=== PATIENT | male | born 1955 | race Caucasian/White ===

== ENCOUNTER 2016-09-14 08:50 | Day surgery (SDC) | payer BC ==
[~2016-09-14 08:50] MED LIST: FENTANYL 100MCG/2ML SOL ONE; MIDAZOLAM 2 MG/2 ML SOL ONE; PROPOFOL 500 MG/50 ML EMU IV ONE
[2016-09-14] MEDS ORDERED: LIDOCAINE HCL 2% MPF SOL ONE (10:22)
[2016-09-14] MEDS: LIDOCAINE HCL 2% MPF SOL ONE ×2 (11:10→11:23)
[2016-09-14] MEDS: BUPIVACAINE HCL 0.5% MPF 10 ML SOL ONE ×3 (11:10→11:32)
[2016-09-14] MEDS ORDERED: PROPOFOL 10 MG/ML EMU IV ONE (11:41)
[2016-09-14 13:33] VITALS: BP 175/94; PULSE 67; RESP 20; TEMP 96.4; O2SAT 94
== END 2016-09-14 14:00 | disposition home or self-care (01) ==
LOC: SURG 08:50
PROVIDERS: ATTEND Orthopaedic Surgery
DX: G56.03 Carpal tunnel syndrome, bilateral upper limbs (principal); R22.32 Localized swelling, mass and lump, left upper limb
CPT/HCPCS: 25071; 29848; 99001; J2250; J2704 ×2; J3010; A6402

== ENCOUNTER 2016-09-28 11:28 | Outpatient (CLI) | payer BC ==
[2016-09-14 13:33] VITALS: O2SAT 94
[2016-09-28 11:48] LABS: BASOPHILS % (AUTO) 1 % (0-3); EOSINOPHILS % (AUTO) 3 % (0-9); HEMATOCRIT 46 % (39-53); MEAN CORPUSCULAR HGB CONC 34.2 gm/dl (32.0-36.0); MEAN CORPUSCULAR VOLUME 90 fL (80-100); MONOCYTES % (AUTO) 6.8 % (0-12); NEUTROPHILS % (AUTO) 56.5 % (37-80)
== END 2016-09-28 11:29 | disposition home or self-care (01) ==
LOC: CONVCARE 11:28
PROVIDERS: ATTEND Orthopaedic Surgery
DX: M25.532 Pain in left wrist (principal); M25.531 Pain in right wrist
CPT/HCPCS: 36415; 84550; 85025; 85651

== ENCOUNTER 2017-09-05 14:06 | Emergency (ER) | payer BC ==
[2017-09-05 14:25] VITALS: TEMP 97.5
[2017-09-05] MEDS ORDERED: NITROGLYCERIN 0.4 MG TAB SL PRN (14:29)
[2017-09-05] MEDS ORDERED: SODIUM CHLORIDE 0.9% FLUSH 10 ML SOL IV PRN (14:29)
[2017-09-05] MEDS ORDERED: ASPIRIN 81 MG CHEWABLE CTB PO STA (14:29)
[2017-09-05 14:36] LABS: BASOPHILS % (AUTO) 1 % (0-3); EOSINOPHILS % (AUTO) 1 % (0-9); HEMATOCRIT 44 % (39-53); MEAN CORPUSCULAR HGB CONC 32.9 gm/dl (32.0-36.0); MEAN CORPUSCULAR VOLUME 94 fL (80-100); MONOCYTES % (AUTO) 8.8 % (0-12); NEUTROPHILS % (AUTO) 60.8 % (37-80)
[2017-09-05 14:49] LABS: BLOOD UREA NITROGEN 11 mg/dl (7-18); CALCIUM 8.5 mg/dl (8.5-10.1); CREATININE 0.87 mg/dl (0.80-1.30); GLOM FILT RATE 89 mL/min (>60); GLUCOSE 92 mg/dl (74-106); POTASSIUM 3.9 mMol/L (3.5-5.1); SODIUM 135 mMol/L (136-145)
[2017-09-05] MEDS ORDERED: ASPIRIN 81 MG CHEWABLE CTB ONE (14:55)
[2017-09-05 15:33] VITALS: BP 141/101; PULSE 94; RESP 20; O2SAT 97
== END 2017-09-05 15:20 | disposition home or self-care (01) ==
LOC: ED 14:06
DX: R07.89 Other chest pain (principal)
CPT/HCPCS: 71045; 80048; 82550; 84484; 85025; 85610; 85730; 93005; 99284

== ENCOUNTER 2017-12-12 17:04 | Inpatient (IN) | payer BC ==
[2017-12-12] MEDS ORDERED: SODIUM CHLORIDE 0.9% 250 ML 250 ML IV ONE (17:11)
[2017-12-12 19:13] LABS: ABO B; ANTIBODY SCREEN Negative; RH TYPE Negative; UNIT TYPE O NEGATIVE
[2017-12-12 19:14] LABS: UNIT TYPE O NEGATIVE
[2017-12-12] MEDS: SODIUM CHLORIDE 0.9% FLUSH 10 ML SOL IV SCH ×4 (19:50→22:08)
[2017-12-12] MEDS ORDERED: CEFOXITIN 1 GM PDS 1 GM in SODIUM CHLORIDE 0.9% 100 ML 100 ML IV SCH (21:00)
[2017-12-12] MEDS ORDERED: AMLODIPINE 5 MG TAB PO SCH (21:00)
[2017-12-12] MEDS ORDERED: CLOPIDOGREL 75 MG TAB PO SCH (21:00)
[2017-12-12] MEDS ORDERED: ATORVASTATIN 10 MG TAB PO SCH (21:00)
[2017-12-12] MEDS ORDERED: LEVOFLOXACIN 25 MG/ML 500 MG in SODIUM CHLORIDE 0.9% 100 ML 100 ML IV SCH (21:00)
[2017-12-12] MEDS ORDERED: LEVOFLOXACIN 25 MG/ML SOL IV ONE (21:15)
[2017-12-12] MEDS ORDERED: SODIUM CHLORIDE 0.9% 100 ML 100 ML IV ONE (21:15)
[2017-12-12 22:00] VITALS: RESP 24; O2SAT 98
[2017-12-12] MEDS ORDERED: METRONIDAZOLE 500 MG (PREMIX) 500 MG/100 ML SOL IV SCH (22:00)
[2017-12-12 22:06] VITALS: BP 116/69; PULSE 88; TEMP 99
== END 2017-12-12 21:15 | disposition short-term general hospital (02) | DRG 663 ==
LOC: ACUTE CARE 17:22
PROVIDERS: ADMIT Family Medicine; ATTEND Family Medicine
PROC: 30233N1 Transfusion of Nonautologous Red Blood Cells into Peripheral Vein, Percutaneous Approach (ICD-10-PCS; principal; 2017-12-12)
DX: D64.9 Anemia, unspecified (principal); I10 Essential (primary) hypertension; R91.1 Solitary pulmonary nodule; R68.81 Early satiety
CPT/HCPCS: 71260; 74177; 86850; 86900; 86901; 86920; 99070; J1956; P9016; Q9967; A9270-GY; J3490

== ENCOUNTER 2017-12-29 09:32 | Emergency (ER) | payer BC ==
[2017-12-29 09:38] VITALS: RESP 20; TEMP 98
[2017-12-29] MEDS ORDERED: SODIUM CHLORIDE 0.9% 1000ML 1,000 ML IV ONE (09:50)
[2017-12-29 10:07] LABS: HEMATOCRIT 28 % (39-53); HEMOGLOBIN 8.4 gm/dl (13.5-17.7); MEAN CORPUSCULAR HEMOGLOBIN 27.4 pg (27.0-32.0); MEAN CORPUSCULAR HGB CONC 30.6 gm/dl (32.0-36.0); MEAN CORPUSCULAR VOLUME 89 fL (80-100)
[2017-12-29 10:10] LABS: INR 1.06 (0.86-1.12)
[2017-12-29 10:17] LABS: ALBUMIN 2.7 gm/dl (3.4-5.0); BILIRUBIN,TOTAL 0.3 mg/dl (0.2-1.0); CALCIUM 8.3 mg/dl (8.5-10.1); CARBON DIOXIDE 27.3 mEq/L (21-32); CREATININE 0.75 mg/dl (0.80-1.30); POTASSIUM 3.9 mMol/L (3.5-5.1); TOTAL PROTEIN 6.7 gm/dl (6.4-8.2)
[2017-12-29 10:21] LABS: BAND NEUTROPHILS % (MANUAL) 2 %; BASOPHILS % (MANUAL) 0 % (0-3); EOSINOPHILS % (MANUAL) 1 % (0-9); MONOCYTES % (MANUAL) 4 % (0-12); NEUTROPHILS % (MANUAL) 87 % (37-80)
[2017-12-29 10:22] LABS: ACANTHOCYTES PRESENT; ANISOCYTOSIS MOD AMT; BURR CELLS PRESENT; HYPOCHROMASIA PRESENT; PLATELET MORPHOLOGY COMMENT INCREASED; POIKILOCYTOSIS MOD AMT
[2017-12-29 10:23] LABS: LYMPHOCYTES % (MANUAL) 6 % (10-50)
[2017-12-29 12:24] VITALS: BP 124/69; PULSE 82; O2SAT 100
== END 2017-12-29 11:55 | disposition home or self-care (01) ==
LOC: ED 09:32
DX: I95.1 Orthostatic hypotension (principal)
CPT/HCPCS: 36415; 80053; 85007; 85027; 85610; 96365; 99284

== ENCOUNTER 2018-02-10 18:41 | Emergency (ER) | payer BC ==
[2018-02-10 19:27] LABS: HEMATOCRIT 24 % (39-53); HEMOGLOBIN 7.5 gm/dl (13.5-17.7); MEAN CORPUSCULAR HEMOGLOBIN 24.7 pg (27.0-32.0); MEAN CORPUSCULAR HGB CONC 30.7 gm/dl (32.0-36.0)
[2018-02-10 19:37] LABS: MEAN CORPUSCULAR VOLUME 81 fL (80-100)
[2018-02-10 19:38] LABS: ANISOCYTOSIS MOD AMT; BAND NEUTROPHILS % (MANUAL) 6 %; BASOPHILS % (MANUAL) 0 % (0-3); BLAST CELLS% 1; EOSINOPHILS % (MANUAL) 0 % (0-9); HYPOCHROMASIA PRESENT; LYMPHOCYTES % (MANUAL) 6 % (10-50); MONOCYTES % (MANUAL) 5 % (0-12); NEUTROPHILS % (MANUAL) 82 % (37-80); OVALOCYTES PRESENT; POIKILOCYTOSIS MOD AMT
[2018-02-10 19:39] LABS: ALBUMIN 1.7 gm/dl (3.4-5.0); BILIRUBIN,TOTAL 0.3 mg/dl (0.2-1.0); BURR CELLS PRESENT; CALCIUM 7.4 mg/dl (8.5-10.1); CARBON DIOXIDE 24.7 mEq/L (21-32); CREATININE 0.56 mg/dl (0.80-1.30); NEUT# ANC 31.9 (1.3-8.4); POTASSIUM 3.2 mMol/L (3.5-5.1); TOTAL PROTEIN 5.5 gm/dl (6.4-8.2)
[2018-02-10 19:42] LABS: LACTIC ACID 1.2 mMol/L (0.0-2.0)
[2018-02-10] MEDS ORDERED: SODIUM CHLORIDE 0.9% FLUSH 10 ML SOL IV PRN (20:02)
[2018-02-10 20:38] LABS: APPEARANCE,URINE Clear; BILIRUBIN,URINE 1+ (NEGATIVE); GLUCOSE, URINE (UA) NEGATIVE (NEGATIVE); KETONES,URINE NEGATIVE (NEGATIVE); LEUKOCYTE ESTERASE ,URINE NEGATIVE (NEGATIVE); NITRATE,URINE NEGATIVE (NEGATIVE); OCCULT BLOOD,URINE NEGATIVE (NEG-TRACE); PH,URINE 5.5
[2018-02-10 20:58] LABS: ICTOTEST,URINE NEGATIVE (NEGATIVE)
[2018-02-10 20:59] LABS: BACTERIA RARE (< 1+); CRYSTALS NEGATIVE (0-3 AVE/HPF); EPITHELIAL CELLS 0-1 (SQUAMOUS); RBC,URINE NEG (0-3AV/HPF); WBC,URINE 0-2 (0-5AV/HPF)
[2018-02-10] MEDS ORDERED: SODIUM CHLORIDE 0.9% 1000ML 1,000 ML IV SCH (21:30)
[2018-02-10] MEDS ORDERED: OXYCODONE HYDROCHLORIDE 5 MG TAB PO ONE (23:11)
[2018-02-10] MEDS ORDERED: OXYCODONE HYDROCHLORIDE 5 MG TAB ONE (23:16)
[2018-02-11 00:19] VITALS: RESP 16
[2018-02-11 00:23] VITALS: BP 117/73; PULSE 99; TEMP 97.6; O2SAT 95
== END 2018-02-10 23:26 | disposition short-term general hospital (02) ==
LOC: ED 18:41
DX: C26.9 Malignant neoplasm of ill-defined sites within the digestive system (principal); E87.6 Hypokalemia; D72.829 Elevated white blood cell count, unspecified; D64.9 Anemia, unspecified
CPT/HCPCS: 36415; 71046; 80053; 81001; 85007; 85027; 87040; 87088; 96365; 96366; 99284; 99285; A9270-GY

== ENCOUNTER 2018-02-23 15:44 | Inpatient (IN) | payer BC ==
[2018-02-23] MEDS ORDERED: BISACODYL 10 MG SUP PR PRN (16:00)
[2018-02-23] MEDS ORDERED: MAGNESIUM HYDROXIDE 30 ML SUS PO PRN (16:00)
[2018-02-23] MEDS ORDERED: LOPERAMIDE HYDROCHLORIDE 2 MG CAP PO PRN (17:21)
[2018-02-23] MEDS ORDERED: DIPHENHYDRAMINE 25 MG CAP PO PRN (17:21)
[2018-02-23] MEDS ORDERED: PROCHLORPERAZINE MALEATE 10 MG PO PRN (17:21)
[2018-02-23] MEDS ORDERED: ACETAMINOPHEN 500 MG 500 MG TAB PO PRN (17:21)
[2018-02-23] MEDS ORDERED: LORAZEPAM 0.5 MG PO PRN (17:21)
[2018-02-23] MEDS ORDERED: Non-Formulary Medication MISC (Polyethylene Glycol 3350 [Polyethylene Glycol* (Miralax)] PO PRN (17:21)
[2018-02-23] MEDS ORDERED: HYDROMORPHONE HCL 2 MG PO PRN (17:21)
[2018-02-23] MEDS ORDERED: ONDANSETRON 4 MG ODT BU PRN (19:12)
[2018-02-23] MEDS ORDERED: POLYETHYLENE GLYCOL 17 GM/1 TBS PDS PO PRN (19:13)
[2018-02-23] MEDS ORDERED: PROCHLORPERAZINE MALEATE 5 MG TAB PO PRN (19:21)
[2018-02-23] MEDS ORDERED: LORAZEPAM 0.5 MG TAB PO PRN (19:31)
[2018-02-23] MEDS: METHADONE HCL 5 MG PO SCH (21:38)
[2018-02-24] MEDS ORDERED: POTASSIUM CHLORIDE 10 MEQ TER PO SCH (09:00)
[2018-02-24] MEDS ORDERED: KLOR CON 20 MEQ PO SCH (09:00)
[2018-02-24] MEDS: SENNOSIDES A AND B 8.6 MG TAB PO SCH (09:50)
[2018-02-24] MEDS: METHADONE HCL 5 MG PO SCH ×2 (09:52→20:45)
[2018-02-24] MEDS: KLOR CON 20 MEQ PO SCH (11:34)
[2018-02-25] MEDS: HYDROMORPHONE HCL 2 MG TAB PO PRN ×2 (06:38→19:45)
[2018-02-25] MEDS: METHADONE HCL 5 MG PO SCH ×2 (08:41→20:59)
[2018-02-25] MEDS: SENNOSIDES A AND B 8.6 MG TAB PO SCH (08:41)
[2018-02-25] MEDS: KLOR CON 20 MEQ PO SCH (13:13)
[2018-02-25] MEDS: POTASSIUM CHLORIDE 10 MEQ CAPSULE PO SCH (14:43)
[2018-02-26] MEDS: HYDROMORPHONE HCL 2 MG TAB PO PRN ×2 (06:54→14:49)
[2018-02-26] MEDS: SENNOSIDES A AND B 8.6 MG TAB PO SCH (09:14)
[2018-02-26] MEDS: POTASSIUM CHLORIDE 10 MEQ CAPSULE PO SCH (09:14)
[2018-02-26] MEDS: METHADONE HCL 5 MG PO SCH ×2 (09:29→21:15)
[2018-02-27 07:32] VITALS: BP 124/80; PULSE 102; RESP 18; TEMP 97.5; O2SAT 98
[2018-02-27] MEDS: SENNOSIDES A AND B 8.6 MG TAB PO SCH (09:23)
[2018-02-27] MEDS: METHADONE HCL 5 MG PO SCH (09:36)
[2018-02-27] MEDS: POTASSIUM CHLORIDE 10 MEQ CAPSULE PO SCH (09:37)
== END 2018-02-27 13:45 | disposition hospice, home (50) | DRG 240 ==
LOC: ACUTE CARE 15:44
PROVIDERS: ADMIT Family Medicine; ATTEND Family Medicine
DX: C26.9 Malignant neoplasm of ill-defined sites within the digestive system (principal); E78.5 Hyperlipidemia, unspecified; R40.0 Somnolence
CPT/HCPCS: A6232; A9270-GY